=== PATIENT | male | born 1960 | race Caucasian/White ===

== ENCOUNTER 2018-10-05 18:00 | Emergency (ER) | payer OTHER ==
[~2018-10-05] VITALS: Ht 182.9 cm; Wt 97.1 kg
[2018-10-05 18:20] VITALS: BP 140/91
[2018-10-05 19:02] LABS: APPEARANCE,URINE CLEAR; BILIRUBIN, URINE NEGATIVE (NEGATIVE); GLUCOSE, URINE (UA) NEGATIVE (NEGATIVE); KETONES,URINE NEGATIVE (NEGATIVE); LEUKOCYTE ESTERASE ,URINE 1+ (NEGATIVE); NITRITE,URINE NEGATIVE (NEGATIVE); PH,URINE 6 (4.5-8.0); PROTEIN,URINE 1+ (NEGATIVE); UROBILINOGEN,URINE NORMAL MG/DL (0.0-1.0)
[2018-10-05 19:06] LABS: COLOR,URINE YELLOW
[2018-10-05 20:22] VITALS: BP 134/87
[2018-10-05 21:09] VITALS: BP 134/87
--- NOTE | 2018-10-05 22:21 | Emergency Room Report ---
History of Present Illness General Chief Complaint: Male Urogenital Problems Source: Patient Present Illness HPI 38-year-old male presents to ED for evaluation. Complaining of left testicular swelling and pain times 2 days. States he was seen by his PMD today. Was started on antibiotics. Was told to come to the ER to rule out torsion. Pain is dull, 5 out of 10, nonradiating. Denies any discharge. Denies any dysuria. No other aggravating relieving factors. Denies any other associated symptoms Allergies: Coded Allergies: No Known Allergies (Unverified , 10/05/18) Patient History Past Medical History: none Past Surgical History: none Pertinent Family History: none Social History: Denies: smoking, alcohol use, drug use Immunizations: UTD Reviewed Nursing Documentation: PMH: Agreed; PSxH: Agreed Nursing Documentation-PMH Past Medical History: No Stated History Review of Systems All Other Systems: negative except mentioned in HPI Physical Exam Vital Signs Date Time Temp Pulse Resp B/P (MAP) Pulse Ox O2 Delivery O2 Flow Rate FiO2 10/05/18 18:11 99.7 96 12 142/93 96 Room Air Sp02 EP Interpretation: reviewed, normal General Appearance: no apparent distress, alert, GCS 15, non-toxic Head: normocephalic Eyes: bilateral eye normal inspection, bilateral eye PERRL ENT: normal ENT inspection Neck: normal inspection Respiratory: normal inspection Cardiovascular #1: normal inspection Gastrointestinal: normal bowel sounds, non tender, soft, non-distended, no guarding, no rebound Rectal: deferred Genitourinary: no CVA tenderness, other - L scrotal swelling/erythema Musculoskeletal: normal inspection Neurologic: alert, oriented x3, responsive, motor strength/tone normal, sensory intact, speech normal Psychiatric: normal inspection Skin: normal inspection Lymphatic: normal inspection Medical Decision Making Diagnostic Impression: Primary Impression: Orchitis ER Course Hospital Course 58-year-old male presents to ED with L testicular pain/swelling. Referred by PMD to rule out torsion Differential diagnoses include: hydrocele, varicocele, epididymitis, testicular torsion Clinical course Patient placed on stretcher. After initial history and physical I ordered UA and scrotal ultrasound. UA-normal Ultrasound shows bilateral hydroceles, no torsion, L orchitis Discussed findings with patient. Reassurance given. States that his PMD was treating him for orchitis. Was ready given antibiotic shot and pill in clinic. Was discharged on Cipro. I encouraged patient to continue the Cipro. I will provide referral Diagnosis - orchitis stable and discharged to home. continue abx as directed. Followup with PMD/ urology. Return to ED if symptoms recur or worsen Labs Test 10/05/18 18:35 Urine Color Yellow Urine Appearance Clear Urine pH 6 (4.5-8.0) Urine Specific [place] 1.015 (1.005-1.035) Urine Protein 1+ (NEGATIVE) Urine Glucose (UA) Negative (NEGATIVE) Urine Ketones Negative (NEGATIVE) Urine Blood Negative (NEGATIVE) Urine Nitrite Negative (NEGATIVE) Urine Bilirubin Negative (NEGATIVE) Urine Urobilinogen Normal MG/DL (0.0-1.0) Urine Leukocyte Esterase 1+ (NEGATIVE) Urine RBC 0-2 /HPF (0 - 0) Urine WBC 0-2 /HPF (0 - 0) Urine Squamous Epithelial Cells None /LPF (NONE/OCC) Urine Bacteria Occasional /HPF (NONE) CT/MRI/US Diagnostic Results CT/MRI/US Diagnostic Results : Imaging Test Ordered: scrotal US Impression hydrocele R testes. complex hydrocele L testes. orchitis with increased flow to L testes. Last Vital Signs Date Time Temp Pulse Resp B/P (MAP) Pulse Ox O2 Delivery O2 Flow Rate FiO2 10/05/18 21:09 99.5 79 14 134/87 99 Room Air Status: improved Disposition: HOME, SELF-CARE Condition: Stable Referrals: Jovanny Kelly MD Patient Instructions: Orchitis Additional Instructions: continue antibiotics as directed. f/u with PMD and urology. return to ED if symptoms recur/worsen Dheeraj Tam MD Oct 05, 2018 22:21
--- NOTE | 2018-10-06 10:25 | Diagnostic Imaging Report ---
Indications: Left testicular pain and swelling Technique: Grayscale and duplex images of the scrotum Comparison: none Findings:The right testicle measures 3.5cm in length. It demonstrates normal echogenicity overall. However, in the lower pole, there is a 10 x 4 mm hypoechoic area which is somewhat irregular in shape. Uncertain as to whether this is intratesticular or extratesticular although suspect the latter is also a masslike opacity is clearly extratesticular, posterior to the right testicle and within the scrotal wall. Normal Doppler flow. Normal epididymis. The left testicle measures 3.7 cm in length. There is a large left hydrocele with septations, as well as enlargement and hyperemia of what is probably the epididymal head. The itself demonstrates abnormal heterogeneous echogenicity, with multiple hypoechoic structures within. Impression: Markedly abnormal left hemiscrotum, with abnormal hypoechoic structures in the left testicle, hyperemia of the left testicle and enlargement of the epididymal head, and surrounding complex hydrocele. Suspect findings represent epididymoorchitis with a large pyocele. Possibility of testicular mass should also be considered, and follow-up sonography after resolution of acute symptoms is recommended Hypoechoic structure within or adjacent to the lower pole of the right testicle is of uncertain significance, appears to be extratesticular and likely an area of inflammation. Hypoechoic structure posterior to the right testicle possibly within the scrotal wall may represent a small scrotal wall abscess. This finding was discussed by phone with Dr. Vallecillo in the emergency room at the time of interpretation
== END 2018-10-05 21:09 | disposition home or self-care (01) ==
LOC: EMR 18:47
DX: N45.2 Orchitis (principal)
CPT/HCPCS: 76870; 81003; 99283